=== PATIENT | female | born 1995 | race Caucasian/White ===

== ENCOUNTER 2022-10-09 10:03 | Emergency (ER) | payer BC, SELFPAY ==
[2022-10-09 10:09] VITALS: BP 139/85; PULSE 92; RESP 18; TEMP 37.1; O2SAT 99; BMI 27.0
--- NOTE | 2022-10-09 11:02 | ED_ITS ---
HPI - General Adult General Time Seen by Provider: 11:02 Date Seen: 10/09/22 Chief complaint: Vaginal Bleeding Stated complaint: 7 weeks : bleeding, pain Time Seen by Provider: 10/09/22 11:01 Source: patient and RN notes reviewed Mode of arrival: ambulatory Limitations: no limitations History of Present Illness HPI narrative: Patient is a very pleasant 27-year-old female with 1st trimester bleeding. She has not been in for ultrasound or clinic confirmation of but had her last menstrual period on 08/30/2022. Was only 3 days in usually would go 5-7. She calculates that she is just about 6 weeks. By a UpToDate calculator with an LMP of 08/30/2022, I have her at 5 weeks, 5 days with an estimated date of delivery on 06/06/2023. She started some spotting Sunday, yesterday it really worsened. She notes every time she goes to the bathroom she has a lot of clotting. She is having right-sided abdominal pain on top of cramping. She wants to make sure she does not have an ectopic . She is tearful stating thinking she is miscarrying. She did have first-trimester bleeding last year and was in our ER, I have reviewed those visits. She had a subchorionic hemorrhage. I can see her blood type was O positive from our blood bank history on 04/14/2021. She did end up going on to have a normal . This is only her 2nd currently. She is not symptomatic from the level bleeding at this time. No fevers. Related Data Home Medications Medication Instructions Recorded Confirmed No Known Home Medications 10/09/22 10/09/22 Allergies Allergy/AdvReac Type Severity Reaction Status Date / Time No Known Drug Allergies Allergy Verified 10/09/22 10:13 Review of Systems Status of ROS: Reports: 10 or more systems reviewed and unremarkable except as noted in History and below PFSH PFSH Social History Smoking Status: Never smoker Do you use any of these nicotine containing products: None Second hand tobacco smoke exposure: No How often do you have a drink containing alcohol: monthly or less AUDIT-C Alcohol total score: 1 Non-prescribed substance use: denies use Exam Const: Vital Signs, click to edit/add: Vital Signs - 24 hr 10/09/22 10:09 Temperature 98.7 F Pulse Rate [Pulse Oximeter] 92 Respiratory Rate 18 Blood Pressure [Ri ght Upper Arm] 139/85 Pulse Oximetry 99 Oxygen Delivery Me thod Room Air Documenting provider has reviewed patient's vital signs: yes Common normals: average body habitus, oriented x3, no limitations, healthy appearing, alert and well nourished General appearance: cooperative, comfortable, well kempt and in distress (Emotional distress with tearfulness) mild Orientation /consciousness: Yes awake, Yes oriented to person, Yes oriented to place and Yes oriented to time HENMT: Common normals: normocephalic, head/scalp atraumatic and hearing grossly normal bilaterally Head and scalp: normocephalic and atraumatic Eye: Common normals: PERRL, EOMs intact bilaterally, conjunctivae normal and no scleral icterus Conjunctiva: conjunctiva(e) normal Pupil: PERRL Neck & C-Spine: Common normals: no lymphadenopathy, supple, no JVD and thyroid normal Thyroid: thyroid normal Resp: Common normals: normal respiratory effort, no retractions, no use of accessory muscles and clear to auscultation bilaterally Auscultation: clear to auscultation bilaterally Cardio: Common normals: no JVD, regular rate, regular rhythm, S1 normal heart sound, S2 normal heart sound, no gallops, no clicks and no murmurs Rate: regular rate Rhythm: regular rhythm Heart sounds: S1 normal and S2 normal GI: Common normals: Normal to inspection, nondistended, normoactive bowel sounds present, soft to palpation (Very mild right lower quadrant tenderness without rebound or guarding), no hepatosplenomegaly and no masses Palpation: soft (Very mild right lower quadrant tenderness without rebound or guarding) and no hepatosplenomegaly : Other: She has a thin pad on, just scant dark brownish spotting. Neuro: Common normals: oriented x3 and gait normal Sensorium/orientation: awake, alert, oriented to person, oriented to place and oriented to time S peech: speech normal Psych: Appearance: well kempt Course Course Hospital Course: Will obtain an ultrasound, CBC and quantitative hCG. Certainly miscarriage is in the differential and I do concur with patient we need to rule out ectopic . She is hemodynamically stable and will be monitored while here. Reevaluation(s) Reevaluation #1: Reviewed with patient that there was not an intrauterine nor ectopic seen. Her hemoglobin looks good. Still awaiting her quantitative HCG, hopefully that will be back soon. Time: 12:25 Reevaluation #2: Reviewed with patient that her hCG level is around 902. She will need a recheck in 48-72 hours to ensure that it is going down. This likely represents a misca rriage given the negative ultrasound but should the hCG not be going down or increasing, further evaluation needs to be considered. Time: 12:50 Vital Signs Vital signs: Initial Vital Signs Temperature 98.7 F 10/09/22 10:09 Temperature Source Temporal Artery Scan 10/09/22 10:09 Pulse Rate 92 10/09/22 10:09 Respiratory Rate 18 10/09/22 10:09 Blood Pressure 139/85 10/09/22 10:09 Blood Pressure Mean 103 10/09/22 10:09 Blood Pressure Position Supine 10/09/22 10:09 Pulse Oximetry 99 10/09/22 10:09 Oxygen Delivery Method 10/09/22 10:09 Vital Signs Temperature 98.7 F 10/09/22 10:09 Pulse Rate 92 10/09/22 10:09 Respiratory Rate 18 10/09/22 10:09 Blood Pressure 139/85 10/09/22 10:09 Pulse Oximetry 99 10/09/22 10:09 Oxygen Delivery Method 10/09/22 10:09 Temperature 98.7 F 10/09/22 10:09 Pulse Rate 92 10/09/22 10:09 Respiratory Rate 18 10/09/22 10:09 Blood Pressure 139/85 10/09/22 10:09 Pulse Oximetry 99 10/09/22 10:09 Oxygen Delivery Method 10/09/22 10:09 Medical Decision Making Lab Data Lab results reviewed: Yes I reviewed the patient's lab results Labs: Lab Results 10/09/22 10/09/22 Range/Units 11:27 11:27 WBC 6.07 (4.50-11.00) K/uL RBC 4.47 (4.00-5.20) m/uL Hgb 13.9 (12.0-16.0) gm/dL Hct 40.9 (33.0-51.0) % MCV 92 (80-100) fL MCH 31 (26-34) pg MCHC 34 (32-36) gm/dL RDW Coeff of Cassy 13.2 (11.5-15.5) % Plt Count 286 (140-440) K/uL Neut % (Auto) 71.1 (42.0-72.0) % Lymph % (Auto) 22.7 (20-44) % Tillman % (Auto) 5.6 (0.0-11.0) % Eos % (Auto) 0.3 (0.0-7.0) % Baso % (Auto) 0.3 (0.0-3.0) % Neut # (Auto) 4.31 (1.7-7.0) K/uL Lymph # (Auto) 1.38 (0.90-2.90) K/uL Tillman # (Auto) 0.30 (0.00-0.90) K/UL Eos # (Auto) 0.02 (0.00-0.50) K/uL Baso # (Auto) 0.02 (0.00-0.30) K/uL Abs Immat Gran (auto) 0.00 (0.00-0.30) K/uL Imm/Tot Granulo (auto) 0.0 % HCG, Quant 902.83 mIU/mL Imaging Data Ultrasound pelvis: Attestation: I have reviewed the pertinent imaging results. Radiologist's impression: Patient: PUSHPA SCHREIBER Facility:?[facility] Patient ID:?[id number] Site Patient ID:?[id number]. Site :?[id number] Study:?US OB Pelvis -10/09/2022 12:14:02 PM Ordering Physician:Jessica Moore Final Report: INDICATION: Bleeding in 1st trimester COMPARISON: None. TECHNIQUE: Real-time jose-scale imaging of the pelvis was performed. FINDINGS: No intrauterine or ectopic . Endometrium is heterogeneous measuring 10 millimeters. No endometrial fluid. No uterine fibroid. Ovaries normal. No torsion. No adnexal mass or free fluid. IMPRESSION: No intrauterine or ectopic . Dictated by Rodrigo Rolle MD @ 10/09/2022 12:19:45 PM (Electronic Signature) Critical Care Time Critical Care Time Critical Care Time: No Discharge Plan Discharge Clinical Impression: Miscarriage Patient Disposition: Home, Self-Care Condition: Stable Instructions: Miscarriage (ED) Additional Instructions: Need to have your quantitative hCG rechecked in 48-72 hours. Please contact your clinic to have this scheduled. If the hCG is not dropping or is going up, you do need re-evaluation, may need repeat ultrasound. Otherwise, if this is indeed a miscarriage, can expect bleeding like a heavy menstrual cycle. If your bleeding is copious such as going through to heavy maxi pads over 2 hours, becoming lightheaded, dizzy or feeling like her going to pass out, have elevated heart rate or shortness of breath, do need to be re-evaluated. Please schedule a clinic follow-up with your primary care provider within the next 1-2 weeks. Activity Level: Activity as Tolerated Discharge Diet: Regular Prescriptions: No Action No Known Home Medications Stand Alone Forms: [employer] Info Instructions
--- NOTE | 2022-10-09 11:11 | CRLHL7_ITS ---
For Patients: As a result of the Century Cures Act, medical imaging exams and procedure reports are released immediately into your electronic medical record. You may view this report before your referring provider. If you have questions, please contact your health care provider. INDICATION: Bleeding in 1st trimester COMPARISON: None. TECHNIQUE: Real-time jose-scale imaging of the pelvis was performed. FINDINGS: No intrauterine or ectopic . Endometrium is heterogeneous measuring 10 millimeters. No endometrial fluid. No uterine fibroid. Ovaries normal. No torsion. No adnexal mass or free fluid. IMPRESSION: No intrauterine or ectopic . Dictated by Rodrigo Rolle MD @ 10/09/2022 12:19:45 PM (Electronically Signed)
--- OUTSIDE RECORDS SUMMARY | 2022-10-09 11:39 | XMS_ITS | Clinical Summary ---
:1995 Author Organization [facility] [place] [address] Care Team Providers Name Role Phone Keith Mary Alice Bertrand [facility] Primary Care Provider Allergies Active Allergy Reactions Severity Noted Date Comments Latex Rash 09/26/2021 Nickel Rash 09/18/2014 Medications No known medications Active Problems Problem Noted Date Annual physical exam 02/14/2022 Pap smear for cervical cancer screening 01/17/2022 Overview: 01/2022 NIL Plan: Pap/HPV due 01/2025 Susceptible to varicella (non-immune), currently pregn ant 05/25/2021 Family history of thyroid disorder 10/28/2015 ADD (attention deficit disorder) 09/18/2014 Adjustment disorder with mixed anxiety and depressed m ood 03/04/2013 Resolved Problems Problem Noted Date Resolved Date exam 02/14/2022 02/14/2022 Forceps delivery with baby delivered 12/18/2021 Liveborn infant 12/18/2021 02/16/2022 Obstetric vaginal laceration, delivered, current 12/18/2021 02/16/2022 hospitalization Category II heart rate tracing during labor and 202102/16/2022 delivery Gestational hypertension, third trimester 12/16/2021 02/16/2022 Decreased movement 10/27/2021 12/16/2021 Cramping affecting , antepartum 09/27/2021 12/16/2021 Supervision of normal 07/01/2021 02/17/20 22 Overview: Formatting of this note is dif ferent from the original. Candelario CHENG - at [place] 25 y.o. sex, name: GIRL FOB: Micah Other children: first for both COURSE: - Final Estimated Date of Delivery: 12/19 by LMP c/w 7 wk US - care initiated at 7 wks - pre-gravid BMI 28.74, goal TWG 7 kg (1 5 lb)-11.5 kg (25 lb) at term - early GDM screen: NO - aspirin 81 mg for pre-E risk: NO - maternal carrier screens: declined - genetic screens: First Tri low-r isk - immunizations: flu [], tdap [10/24/21], other [non-immune Rubella & Varicella] - accepting of blood products: YES - hx any HSV: NO DOC FSH PHQ9 TOTAL SCORE 01/30/2017201609/01/2019 05/23/2021 09/20/2021 PHQ-9 TOTAL SCORE 5 5 19 2 2 Depression Severity Level mild mild mode rately severe none none Imagin. 6/14 - 7w2d by CRL exactly matches LM P dating, FHR 133 bpm 2. 7/19 - 12w0d by CRL c/w LMP, NT wnl, First Tri screen low-risk 3. 9/ - 21w0d, anatomy WNL, EFW 42%, p lacenta posterior no previa Labs: - O Rh Positive - GC/CT: declined, low-risk - HB.6 > 11.2 - PLT: 267 - HCV: neg - GCT: 87 - GBS: negative Pap due, declined prenatally - plan for 6 wk PP visit COMPLICATIONS: High Risk? NO Non-immune status - rubella & varicella titers non-immune - vaccines have been recommended after Jocelin dorsey is accepting PREFERENCES: - planning epidural - wants to try hydrotherapy first and go as long as possible until epidural - taking class, no childbi rth edu - pump at hospital _ All baby meds ok Dysfunctional uterine bleeding 03/13/2016 2 Contraception 07/14/2014 09/20/2021 Encounter for other specified screening 02/16/2022 Arrest of descent, delivered, current hospitalization 02/16/2022 Immunizations Name Administration Dates Next Due DTaP 01/07/1997, 03/07/1996, 01/07/1996, 1995 Hepatitis A (Peds) 06/28/2010 Hepatitis B (Peds) 01/07/1997 Hib Conjugate, Unspecified 01/07/1997, 03/07/1996, 6, 1995 Human Papilloma Virus Vaccine 05/01/2011, 01/27/2011, 2010 Inactivated Polio Vaccine 03/07/1996, 01/07/1996, 1995 Influenza, IIV3 (Age >=3 years) 11/21/2014, 09/12/2011, 08/20 Influenza, IIV4 09/01/2019, 07/27/2016, 08/13/2015 Influenza,CCIIV4 PRESERV FREE 11/14/2018 MMR 06/11/2008, 01/07/1997 Meningococcal Vaccine (Menactra) 06/28/2010 Tdap 10/24/2021 Tuberculin (PPD) 01/15/2013 Varicella Vaccine 06/28/2010, 01/07/1997 Family History Medical History Relation Name Comments Hyperlipidemia Father Hypertension Father Psychiatric illness Maternal Aunt Thyroid Disease Maternal Aunt Alcohol/Drug Maternal Grandfather Diabetes Maternal Grandmother Other Maternal Grandmother muscular di sease similar to MS Psychiatric illness Maternal Grandmother Alcohol/Drug Maternal Uncle Alcohol/Drug Other Psychiatric illness Other Thyroid Disease Paternal Aunt defects No Family History Clotting disorder No Family History Congenital heart disease No Family History Relation Name Status Comments Father Maternal Aunt Maternal Grandfather Maternal Grandmother Maternal Uncle Other Paternal Aunt Social History Tobacco Use Types Packs/Day Years Used Date Never Smoker Smokeless Tobacco: Never Used Tobacco Cessation: Counseling Given: Yes Alcohol Use Standard Drinks/Week Comments Not Currently 0 (1 standard drink = 0.6 oz pure alcoho l) 3 drinks twice a month Alcohol Habits Answer Date Recorded How often do you have a drink containing 2-4 times a month 09/01/2019 alcohol? How many drinks containing alcohol do you have 3 or 4 09/01/2019 on a typical day when you are drinking? How often do you have six or more drinks on one Never 09/01/2019 occasion? Comment: 3 drinks twice a month 04/07/2015 Sex Assigned at Date Recorded Not on file Obstetrics History Para Term AB IAB SAB Ectopic Multiple Living Live Births 1 1 1 0 0 0 0 0 0 1 1 Date Outcome GA Total Labor/2nd/3rd Weight Sex Delivery Anes PTL Tere A 1 A5 Name Clin Labor 12/18 Term 39w 15h 12h 30m/2h 3.24 kg F Vag-Force Epidu N Sarita 5 8 Olivi 6d 05m 31m/0h 04m (7 lb ps ral, ng a on, 2.3 oz) IV Je nni Meds tracey, CNM Complications: Category II: Indeterminat e Delivery Location: Hospital ([facility] [place] [address] L&D TRIAGE) Last Filed Vital Signs Vital Sign Reading Time Taken Comments Blood Pressure 108/70 02/16/2022 2:08 PM CDT Pulse 68 02/16/2022 2:08 PM CDT Temperature 36.6 ??C (97.8 ??F) 12/19/2021 7:20 AM MACHINE FILLER Respiratory Rate 18 12/19/2021 7:20 AM MACHINE FILLER Oxygen Saturation 96% 12/19/2021 7:20 AM MACHINE FILLER Inhaled Oxygen Concentration - - Weight 84.4 kg (186 lb) 02/16/2022 2:08 PM CDT Height 167.6 cm (5' 6) 02/16/2022 2:08 PM CDT Body Mass Index 30.02 02/16/2022 2:08 PM CDT Plan of Treatment Health Maintenance Due Date Last Done Comments COVID-19 vaccine series (#1) 02/24/1996 Influenza for age 9-49 07/20/2022 09/01/2019, 11/14/2018, 07/27/2016, Additional history exists BMI (ht and wt on same day) for 02/16/2023 02/16/2022, 03/20, age 18+ 09/01/2019, Additional history exists Depression screening for age 12+ 02/16/2023 02/16/2022, 12/2020, 05/23/2021, Additional history exists Pap test for age 21-65 02/16/2025 02/16/2022, 10/18/2016 Tetanus booster 10/24/2031 10/24/2021 Hepatitis C screening for age Completed 05/23/2021 18-79 Tdap Completed 10/24/2021 Results Not on filefrom Last 3 Months Insurance Payer Benefit Plan / Subscriber ID Effective Dates Phone Addre ss Type Group [employer] [id number] 2017-Pres [address] [place] [address] [facility] [id number] 2021-Prese [address] [place] [address] (Home) [place] [id number] Jocelin Nagy [address] Self [id number] (Home) [place] [id number] Advance Directives Latest Code Status on File Code Status Date Activated Date Inactivated Comments Full Code 12/16/2021 5:34 PM 12/19/2021 3:34 PM Code Status Discussion: Reviewed Preferences Care Teams Chronic Care Nurse Relationship Specialty Start Date End Date Mary Alice Parker CNM PCP - General Family Practice 12/02/10 [id number] [place] [address]
[2022-10-09 11:42] LABS: Basophils Absolute Auto 0.02 K/uL (0.00-0.30); Basophils Percent Auto 0.3 % (0.0-3.0); Eosinophils Absolute Auto 0.02 K/uL (0.00-0.50); Eosinophils Percent Auto 0.3 % (0.0-7.0); Hematocrit 40.9 % (33.0-51.0); Hemoglobin* 13.9 gm/dL (12.0-16.0); Lymphocytes Absolute Auto 1.38 K/uL (0.90-2.90); Lymphocytes Percent Auto 22.7 % (20-44); Mean Corpuscular HGB Conc 34 gm/dL (32-36); Mean Corpuscular Hemoglobin 31 pg (26-34); Mean Corpuscular Volume 92 fL (80-100); Monocytes Percent Auto 5.6 % (0.0-11.0); Neutrophils Absolute Auto 4.31 K/uL (1.7-7.0); Neutrophils Percent Auto 71.1 % (42.0-72.0); Platelet Count* 286 K/uL (140-440); RDW Coefficient of Variation % 13.2 % (11.5-15.5); Red Blood Count 4.47 m/uL (4.00-5.20); White Blood Count* 6.07 K/uL (4.50-11.00)
[2022-10-09 11:57] LABS: Slide Review Reflex No
[2022-10-09 13:00] VITALS: BP 122/92; PULSE 70; RESP 18; O2SAT 100
== END 2022-10-09 13:05 | disposition home or self-care (01) ==
PROVIDERS: Emergency Provider Family Medicine
DX: O03.9 Complete or unspecified spontaneous abortion without complication (principal); Z3A.01 Less than 8 weeks gestation of pregnancy
CPT/HCPCS: 36415; 76817; 84702; 85025; 93976; 99284

== ENCOUNTER 2023-02-01 12:48 | Outpatient (CLI) | payer BC, SELFPAY ==
--- NOTE | 2023-02-01 13:00 | CRLHL7_ITS ---
For Patients: As a result of the Cures Act, medical imaging exams and procedure reports are released immediately into your electronic medical record. You may view this report before your referring provider. If you have questions, please contact your health care provider. INDICATION: First trimester scan, establish dates. COMPARISON: None. TECHNIQUE: Real-time jose-scale imaging of the pelvis was performed. FINDINGS: Sonographic imaging demonstrates a single living intrauterine gestation. The embryo demonstrates a regular cardiac rate measuring 173 beats per minute. The embryo`s crown-rump length measurement of 2.1 cm corresponds to a gestational age of 8 weeks 5 days with a sonographic due date of 09/08/2023. There is a normal-appearing yolk sac. There are no gross abnormalities noted within the embryo at this early state of development. The gestational sac has a normal appearance. There is no evidence of a perigestational hemorrhage. The amount of fluid within the sac appears appropriate for gestational age. The cervix is closed. The myometrium appears normal. Corpus luteal cyst right ovary. Left ovary not visualized today. There are no suspicious fluid collections noted in the cul-de-sac. IMPRESSION: Normal first trimester OB ultrasound exam. Gestational age calculated at 8 weeks 5 days with a sonographic due date of 09/08/2023. Dictated by Rodrigo Rolle MD @ 02/02/2023 11:02:32 AM (Electronically Signed)
== END 2023-02-01 12:49 | disposition home or self-care (01) ==
LOC: US 12:49
PROVIDERS: Visit Provider Physician Assistant
DX: Z34.91 Encounter for supervision of normal pregnancy, unspecified, first trimester (principal); Z3A.08 8 weeks gestation of pregnancy
CPT/HCPCS: 76817; 82565; 82570; 84156; 84443; 84450; 84460; 84520; 84550; 86592; 86703; 86762; 86787; 86803; 86850; 86900; 86901; 87086; 87340

== ENCOUNTER 2023-02-01 13:43 | Outpatient (CLI) | payer BC, SELFPAY | END 2023-02-01 13:44 | disposition home or self-care (01) | PROVIDERS: Visit Provider Advanced Practice Midwife | DX: Z34.91 Encounter for supervision of normal pregnancy, unspecified, first trimester (principal); Z3A.08 8 weeks gestation of pregnancy | CPT/HCPCS: 82565; 82570; 84156; 84443; 84450; 84460; 84520; 84550; 86592; 86703; 86762; 86787; 86803; 86850; 86900; 86901; 87086; 87340 ==

== ENCOUNTER 2023-03-01 09:52 | Outpatient (CLI) | payer BC, SELFPAY | END 2023-03-01 09:53 | disposition home or self-care (01) | LOC: NFLDREF 09:52 | PROVIDERS: Visit Provider Advanced Practice Midwife | DX: Z34.91 Encounter for supervision of normal pregnancy, unspecified, first trimester (principal); Z3A.12 12 weeks gestation of pregnancy | CPT/HCPCS: 84460 ==

== ENCOUNTER 2023-06-15 08:03 | Outpatient (CLI) | payer BC, SELFPAY | END 2023-06-15 08:04 | disposition home or self-care (01) | LOC: NFLDREF 06-17 15:39 | PROVIDERS: Visit Provider Advanced Practice Midwife | DX: Z34.93 Encounter for supervision of normal pregnancy, unspecified, third trimester (principal); Z3A.28 28 weeks gestation of pregnancy | CPT/HCPCS: 86592 ==

== ENCOUNTER 2023-06-21 08:20 | Outpatient (CLI) | payer BC, SELFPAY | END 2023-06-21 08:21 | disposition home or self-care (01) | LOC: NFLDREF 09:25 | PROVIDERS: Visit Provider Advanced Practice Midwife | DX: Z34.93 Encounter for supervision of normal pregnancy, unspecified, third trimester (principal) | CPT/HCPCS: 82951; 82952 ==

== ENCOUNTER 2023-08-06 17:08 | Outpatient (CLI) | payer BC, SELFPAY ==
[2023-08-06 17:21] VITALS: BP 129/84; PULSE 93; RESP 16; TEMP 37.1
[2023-08-06 17:22] VITALS: PULSE 97; O2SAT 99
--- NOTE | 2023-08-06 17:52 | PC.OBNST ---
NST Note NST Note Start: 08/06/23 17:16 Freq: ONCE Status: Active Protocol: Document 08/06/23 17:50 [facility] (Rec: 08/06/23 17:51 [facility] [id number]) NST Note 3 Para (# of births) 1 EDC 09/07/23 Gestational Age In Weeks & Days 35 Weeks & 3 Days Patient Presented with Complaint(s) of Decreased movement Reactive Yes Appropriate for Gestational Age Yes MARCIAL Burnett RN Date 08/06/23 Reactive Yes Appropriate for Gestational Age Yes MARCIAL Rowley RN Date 08/06/23 OB NST charge Yes Complete NST Note via Write Note Yes The provider's electronic signature indicates the NST is reactive/appropriate for gestational age. *Note to provider: If an addendum is required, open the patient's chart and click on the note under the Nurse/Allied Health tab.
== END 2023-08-06 17:56 | disposition home or self-care (01) ==
LOC: OB OUT 17:08 → OB 17:10
PROVIDERS: Visit Provider Advanced Practice Midwife
DX: O36.8130 Decreased fetal movements, third trimester, not applicable or unspecified (principal); Z3A.35 35 weeks gestation of pregnancy
CPT/HCPCS: 59025; 99213

== ENCOUNTER 2023-08-15 13:40 | Outpatient (CLI) | payer BC, SELFPAY ==
--- NOTE | 2023-08-15 14:00 | CRLHL7_ITS ---
For Patients: As a result of the Century Cures Act, medical imaging exams and procedure reports are released immediately into your electronic medical record. You may view this report before your referring provider. If you have questions, please contact your health care provider. INDICATION: Third trimester scan, evaluate growth. Follow-up pelviectasis COMPARISON: 04/24/2023 TECHNIQUE: Real time jose scale imaging of the fetus was performed. FINDINGS: Sonographic imaging demonstrates a single living intrauterine gestation. Fetus demonstrates a regular cardiac rate of 161 beats per minute. Fetus has a vertex position. The placenta lies anterior. Amniotic fluid volume appears normal and there is a single deepest vertical pocket: 8.8 cm. PANTERA 20.9 cm. The estimated weight is 3416gm which lies at the 88th %. On the prior OB ultrasound exam dated 04/24/2023 the estimated weight was at the 72nd%. BPD 91st percentile. HC 62nd percentile. AC 94th percentile. FL 74th percentile. The HC/AC ratio measures 0.97 range (0.89-1.06). Right renal pelvis measures 3.7 millimeters. Left renal pelvis measures 7.1 millimeters. Previously, the right renal pelvis measured 5 millimeters in the left renal pelvis measured 4 millimeters. IMPRESSION: Left renal pelviectasis measures 7.1 millimeters, slightly abnormal. follow-up recommended. Sonographic gestational age 38 weeks 1 day and sonographic due date 08/28/2023. Sonographic age 10 days ahead of the clinical age. Estimated weight 88th percentile. Abdominal circumference 94th percentile. Dictated by Rodrigo Rolle MD @ 08/16/2023 10:12:00 AM (Electronically Signed)
== END 2023-08-15 13:41 | disposition home or self-care (01) ==
LOC: US 13:40
PROVIDERS: Visit Provider Advanced Practice Midwife
DX: Z34.83 Encounter for supervision of other normal pregnancy, third trimester (principal); Z3A.38 38 weeks gestation of pregnancy
CPT/HCPCS: 76816; 84450; 84460

== ENCOUNTER 2023-08-15 15:04 | Outpatient (CLI) | payer BC, SELFPAY ==
[2023-08-16 15:23] LABS: Strep B DNA Probe NEGATIVE (Negative)
[2023-08-16 15:43] LABS: Strep B Pen/Amox Allergy No
== END 2023-08-15 15:05 | disposition home or self-care (01) ==
PROVIDERS: Visit Provider Advanced Practice Midwife
DX: Z34.93 Encounter for supervision of normal pregnancy, unspecified, third trimester (principal); Z3A.38 38 weeks gestation of pregnancy
CPT/HCPCS: 82239; 84450; 84460; 87081; 87653

== ENCOUNTER 2023-08-28 10:42 | Outpatient (CLI) | payer BC, SELFPAY ==
[2023-08-28] VITALS (9 sets, daily range): BP systolic 109–132; BP diastolic 66–78; PULSE 77–92; RESP 18; TEMP 36.6
[2023-08-28] MEDS: ACETAMINOPHEN 500 MG TABLET 1000 MG PO (11:47)
[2023-08-28] MEDS: METOCLOPRAMIDE 10 MG TABLET PO (11:48)
[2023-08-28 12:09] LABS: Creatinine Urine 154.3 mg/dL; Total Protein Urine < 5 mg/dL
[2023-08-28 12:24] LABS: Hematocrit 33.3 % (33.0-51.0); Hemoglobin* 11.1 gm/dL (12.0-16.0); Mean Corpuscular HGB Conc 33 gm/dL (32-36); Mean Corpuscular Hemoglobin 32 pg (26-34); Mean Corpuscular Volume 95 fL (80-100); Platelet Count* 224 K/uL (140-440); White Blood Count* 6.47 K/uL (4.50-11.00)
[2023-08-28 12:25] LABS: Slide Review Reflex No
[2023-08-28 12:48] LABS: Alanine Aminotransferase* 10 U/L (4-35); Aspartate Amino Transferase* 16 U/L (12-35); Blood Urea Nitrogen* 6 mg/dL (5-24); Creatinine* 0.7 mg/dL (0.5-1.5); Estimated Glomerular Filt Rate 121 ml/min
[2023-08-28] MEDS: SUMAtriptan succinate 50 MG TABLET PO (13:19)
--- NOTE | 2023-08-28 13:59 | PC.OBNST ---
NST Note NST Note Start: 08/28/23 11:19 Freq: ONCE Status: Active Protocol: Document 08/28/23 13:55 [facility] (Rec: 08/28/23 13:59 [facility] [id number]) NST Note 3 Para (# of births) 1 EDC 09/07/23 Gestational Age In Weeks & Days 38 Weeks & 4 Days Patient Presented with Complaint(s) of Other Other Complaints Patient was sent from clinic for high blood pressure and persistent headache. Reactive Yes MARCIAL Rubio RN Date 08/28/23 Reactive Yes MARCIAL Michaels RN Date 08/28/23 OB NST charge Yes Complete NST Note via Write Note Yes The provider's electronic signature indicates the NST is reactive/appropriate for gestational age. *Note to provider: If an addendum is required, open the patient's chart and click on the note under the Nurse/Allied Health tab.
== END 2023-08-28 13:45 | disposition home or self-care (01) ==
LOC: OB OUT 10:44 → OB 10:45
PROVIDERS: Visit Provider Advanced Practice Midwife
DX: O16.3 Unspecified maternal hypertension, third trimester (principal); R51.9 Headache, unspecified; Z3A.38 38 weeks gestation of pregnancy
CPT/HCPCS: 36415; 59025; 82565; 82570; 84156; 84450; 84460; 84520; 85027; 99213; A9270

== ENCOUNTER 2023-08-29 12:24 | Outpatient (CLI) | payer BC, SELFPAY ==
[2023-08-29] VITALS (7 sets, daily range): BP systolic 118–124; BP diastolic 69–82; PULSE 81–108; RESP 16; TEMP 36.6; O2SAT 97
[2023-08-29] MEDS: METOCLOPRAMIDE 10 MG TABLET PO (13:47)
--- NOTE | 2023-08-29 14:07 | PM.OBLDTN ---
OB - Triage/Final Diagnosis Visit Information Date of evaluation: 08/29/23 Narrative: The patient is a 28 year old 3 para 1 at 38.5 weeks gestation by LMP, who presents with persistent headache and lightheadedness. She was seen in clinic yesterday and sent to L&D for monitoring for some elevated BP's. Had normal BP's yesterday and normal Pre E labs. Consulted with Dr. Parish, recommended repeat Pre E labs, fluids and suggested Compazine for headache rather than Imitrex. Labs all normal on recheck, given, IV fluids and Compazine for headache with decrease of pain from 05/28 to 02/26. Pt would like to go home. Rx sent for Compazine for continued headache treatment. Keep routine OB visits. Reason for evaluation: other (Persistent headache) Evaluation Vital signs: Vital Signs - 24 hr 08/29/23 12:38 08/29/23 12:39 08/29/23 12:47 Temperature 97.9 F Pulse Rate Respiratory Rate 16 Blood Pressure 122/79 Pulse Oximetry 97 08/29/23 12:47 08/29/23 13:06 08/29/23 13:06 Temperature Pulse Rate 105 H 90 Respiratory Rate Blood Pressure 124/76 Pulse Oximetry 08/29/23 13:21 08/29/23 13:21 08/29/23 13:35 Temperature Pulse Rate 96 Respiratory Rate Blood Pressure 121/79 124/82 Pulse Oximetry 08/29/23 13:35 Temperature Pulse Rate 93 Respiratory Rate Blood Pressure Pulse Oximetry Fetus (Single) Heart Rate Baseline: 145 [facility] Variability: Moderate (6-25) Monitor Accelerations: Present Monitor Decelerations: None Final Diagnosis (1) Migraine headache with aura: Status: Chronic
[2023-08-29 14:25] LABS: Hematocrit 34.8 % (33.0-51.0); Hemoglobin* 11.8 gm/dL (12.0-16.0); Mean Corpuscular HGB Conc 34 gm/dL (32-36); Mean Corpuscular Hemoglobin 32 pg (26-34); Mean Corpuscular Volume 94 fL (80-100); Platelet Count* 229 K/uL (140-440); Red Blood Count 3.72 m/uL (4.00-5.20); White Blood Count* 6.35 K/uL (4.50-11.00)
[2023-08-29] MEDS: LACTATED RINGERS 1000 ML 1,000 ML 500 ML IV (14:30)
[2023-08-29 14:37] LABS: Slide Review Reflex No
[2023-08-29 14:42] LABS: Alanine Aminotransferase* 11 U/L (4-35); Aspartate Amino Transferase* 18 U/L (12-35); Creatinine* 0.7 mg/dL (0.5-1.5); Estimated Glomerular Filt Rate 121 ml/min
[2023-08-29 14:43] LABS: Blood Urea Nitrogen* 5 mg/dL (5-24)
[2023-08-29] MEDS: PROCHLORPERAZINE 10 MG TABLET PO (15:29)
[2023-08-29 15:38] LABS: Total Protein Urine Random* < 2 mg/dL
--- NOTE | 2023-10-04 09:50 | PC.OBNST ---
NST Note NST Note Start: 08/29/23 12:46 Freq: ONCE Status: Discharge Protocol: Document 08/29/23 17:34 WK (Rec: 08/29/23 17:39 WK [email or web address]) NST Note 3 Para (# of births) 1 EDC 09/07/23 Gestational Age In Weeks & Days 38 Weeks & 5 Days Patient Presented with Complaint(s) of Headache If Pain, describe location HX of migraines Reactive Yes Appropriate for Gestational Age Yes RN Jean Paul RNC Date 08/29/23 Reactive Yes RN Emperatriz RN OB NST charge Yes Complete NST Note via Write Note Yes The provider's electronic signature indicates the NST is reactive/appropriate for gestational age. *Note to provider: If an addendum is required, open the patient's chart and click on the note under the Nurse/Allied Health tab.
== END 2023-08-29 17:20 | disposition home or self-care (01) ==
LOC: OB OUT 12:24 → OB 12:25
PROVIDERS: Visit Provider Advanced Practice Midwife
DX: O26.899 Other specified pregnancy related conditions, unspecified trimester (principal); G43.109 Migraine with aura, not intractable, without status migrainosus; R51.9 Headache, unspecified
CPT/HCPCS: 36415; 59025; 82565; 84156; 84450; 84460; 84520; 85027; 99213; A9270; J7120

== ENCOUNTER 2023-09-06 10:59 | Outpatient (CLI) | payer BC, SELFPAY ==
[2023-09-06] VITALS (13 sets, daily range): BP systolic 112–127; BP diastolic 70–85; PULSE 93–116; RESP 18; TEMP 36.6; O2SAT 97–98
[2023-09-06 11:55] LABS: Hematocrit 31.8 % (33.0-51.0); Hemoglobin* 10.7 gm/dL (12.0-16.0); Mean Corpuscular HGB Conc 34 gm/dL (32-36); Mean Corpuscular Hemoglobin 32 pg (26-34); Mean Corpuscular Volume 95 fL (80-100); Platelet Count* 223 K/uL (140-440); Red Blood Count 3.36 m/uL (4.00-5.20); White Blood Count* 6.69 K/uL (4.50-11.00)
[2023-09-06 11:56] LABS: Slide Review Reflex No
[2023-09-06 12:12] LABS: Total Protein Urine < 5 mg/dL
[2023-09-06 12:12] LABS: Alanine Aminotransferase* 11 U/L (4-35); Aspartate Amino Transferase* 32 U/L (12-35); Blood Urea Nitrogen* 4 mg/dL (5-24); Creatinine* 0.7 mg/dL (0.5-1.5); Estimated Glomerular Filt Rate 121 ml/min
[2023-09-06 12:38] LABS: Creatinine Urine 372.3 mg/dL
--- NOTE | 2023-09-06 13:22 | PC.OBNST ---
NST Note NST Note Start: 09/06/23 12:00 Freq: ONCE Status: Active Protocol: Document 09/06/23 13:19 [facility] (Rec: 09/06/23 13:22 [facility] [id number]) NST Note 3 Para (# of births) 1 EDC 09/07/23 Gestational Age In Weeks & Days 39 Weeks & 6 Days Patient Presented with Complaint(s) of Pain,Headache If Pain, describe location RUQ pain- sharp stabbing comes and goes Other Complaints higher BP's at home Reactive Yes RN Sue RNC Date 09/06/23 Reactive Yes MARCIAL Dover RN Date 09/06/23 OB NST charge Yes Complete NST Note via Write Note Yes The provider's electronic signature indicates the NST is reactive/appropriate for gestational age. *Note to provider: If an addendum is required, open the patient's chart and click on the note under the Nurse/Allied Health tab.
== END 2023-09-06 13:00 | disposition home or self-care (01) ==
LOC: OB OUT 10:59 → OB 11:00
PROVIDERS: Visit Provider Advanced Practice Midwife
DX: O47.1 False labor at or after 37 completed weeks of gestation (principal); Z3A.39 39 weeks gestation of pregnancy
CPT/HCPCS: 36415; 59025; 82565; 82570; 84156; 84450; 84460; 84520; 85027; 99213

== ENCOUNTER 2023-09-09 00:41 | Inpatient (IN) | payer BC, SELFPAY ==
[2023-09-09] VITALS (39 sets, daily range): BP systolic 98–146; BP diastolic 53–91; PULSE 71–130; RESP 16–20; TEMP 36.4–36.8; O2SAT 81–100; BMI 33.3
[2023-09-09] MEDS: LACTATED RINGERS 1000 ML 1,000 ML 999 ML IV (01:00)
[2023-09-09] MEDS: fentaNYL 100 MCG/2 ML inj IVP (01:08)
--- NOTE | 2023-09-09 01:18 | P.LDBA_ITS ---
Subjective History of Present Illness Date Seen: 09/09/23 Narrative: Patient is being admitted to Labor and Delivery for active labor. She is a 28 year old at 39.6 weeks gestation. She states her contractions began about 2 hours ago, on admission cervix is 5.5, 90%, -1 with bulging bag. She denies any leaking of fluid or vaginal bleeding. She plans an epidural for pain. Currently breathing well through contractions and waiting for anesthesia to place. She denies PreE symptoms on admission, continues to have daily headaches. BP on admission 146/90, reports slight stars and blurry vision with onset of contractions, she did just have a dose of Fentanyl just prior to this exam. Her full history and physical was dictated by Chela Tolliver CNM on 09/04/23 Please see this for details. Specific Issues/Plans Wants MaterniT 21- Pt doesn't want to know sex. H&P done by Chela Tollvier on 09/04/23 1. Hx of Forceps assisted delivery 2. Hx of Gestational HTN Noted at end of , IOL for Will start taking ASA 3. ADD not on medication hasn't been for 4+ years 4. Hx of Anxiety and Depression no medications, did therapy in past not currently 5. Migraine with aura has had persistent headache since 08/27 using Tylenol and Compazine for FROST PreE labs normal, BPs normal with monitoring 6. Varicella non immune -needs vaccine PP 7. ALT mildly elevated on baseline labs, consider repeat at next visit. RESOLVED Lab repeated 03/01: 19, WNL 8. Mild bilateral pelviectasis measuring 4.2 millimeters on the left and 4.6 millimeters on the right. Recommend US follow-up in 3rd trimester. 08/15 US showed R-0.4cm L-0.7 cm, EFW 88%, PANTERA 20.9cm 9. Elevated 1 hr GCT (145). Passed 3 hr GTT, all values WNL COVID: declines Flu: declined TDAP: 08/01/2023 32wk Mental Health: 07/18/2023 34wk Hgb: 08/29/2023 OB - Problem Based A/P Additional Plan (1) Active labor at term: Status: Acute (2) Pain during labor: Status: Acute Plan Assessment:?? at 39.6 weeks gestation?? GBS negative? Patient is coping well with challenges of labor.?? Labor type: Spontaneous, Active labor? Category 1 FHR pattern.? complicated by: ADD, anxiety and depression, migraines with aura, mild bilateral pelviesctasis, elevated 1 hr GTT with normal 3 hr GT Recently has had daily headache needing additional medications to treat, negative work ups for PreE On admission BP 146/90 will have Pre E labs drawn again. Labor complicated by: nothing at this time? Plan:?? * ?Admit to L & D? * IV access: per protocol for epidural placement * Monitoring per policy: continuous ? * Candidate for analgesia of choice.? Planning epidural for pain management * Expectant management at this time * Patient encouraged to reposition and ambulate to promote physiologic labor and . * Anticipate ? Delivery/Labor/Induction Plan Plan: expectant management OB Exam Physical Exam Vital signs: Pulse BP Pulse Ox 117 H 146/90 H 99 09/09/23 00:44 09/09/23 00:44 09/09/23 00:45 Narrative: Vitals Reviewed Constitutional:? Alert and oriented x3 HEENT:? Normocephalic, atraumatic Neck:? Supple Lungs:? Clear to auscultation bilaterally Heart:? Regular rate and rhythm, no murmur, rub or gallop Abdomen:? Soft, nontender, and gravid. Vertex by Ras's, confirmed with cervical exam. Extremities:? No edema or erythema Cervix: 5.5 cm/90%/-1 station/vertex NST: 130 bpm/moderate variability/+accelerations/-decelerations/Q2-3 mins contractions Detailed Labor and Delivery Exam Patient Gravid: Yes Fetus (Single) Amniotic Membrane Status: intact
[2023-09-09 01:28] LABS: Hematocrit 35.2 % (33.0-51.0); Hemoglobin* 11.9 gm/dL (12.0-16.0); Mean Corpuscular HGB Conc 34 gm/dL (32-36); Mean Corpuscular Hemoglobin 31 pg (26-34); Mean Corpuscular Volume 93 fL (80-100); Platelet Count* 283 K/uL (140-440); Red Blood Count 3.79 m/uL (4.00-5.20); White Blood Count* 8.32 K/uL (4.50-11.00)
[2023-09-09 01:29] LABS: Slide Review Reflex No
[2023-09-09] MEDS: ROPIVACAINE 0.2% 100 ml 100 ML 12 MG EPIDURAL (01:38)
[2023-09-09 01:44] LABS: Alanine Aminotransferase* 12 U/L (4-35); Aspartate Amino Transferase* 40 U/L (12-35); Blood Urea Nitrogen* 5 mg/dL (5-24); Creatinine* 0.7 mg/dL (0.5-1.5); Estimated Glomerular Filt Rate 121 ml/min
--- NOTE | 2023-09-09 01:51 | P.ANBPRC_ITS ---
[facility] Medical History (Updated 09/09/23 @ 01:31 by Luciana Tolliver CNM) Migraine headache with aura ?G43.109 - Migraine with aura, not intractable, without status migrainosus (ICD-10) History of miscarriage (09/2022) ?Z87.59 - Personal history of other complications of , childbirth and the puerperium (ICD-10) Depression ?F32.A - Depression, unspecified (ICD-10) Attention deficit disorder ?F98.8 - Other specified behavioral and emotional disorders with onset usually occurring in childhood and adolescence (ICD-10) Anxiety ?F41.9 - Anxiety disorder, unspecified (ICD-10) Surgical History (Updated 02/01/23 @ 14:05 by Luciana Tolliver CNM) H/O oral surgery ?Z98.890 - Other specified postprocedural states (ICD-10) Family History (Updated 02/01/23 @ 14:06 by Luciana Tolliver CNM) Maternal Grandmother Diabetes Psychiatric illness Multiple sclerosis Maternal Grandfather Alcohol dependence Aunt Psychiatric illness Thyroid disease Uncle Alcohol dependence Father High blood pressure High cholesterol Brother Alcohol dependence Social History (Updated 02/01/23 @ 14:48 by Beth Cornell CNM) Narrative: SOCIAL?? Education: some college?? Work: learning program manager at [employer]?? Partner: Micah, child protective services social worker of [employer]?? Lives with: Micah and daughter (14 months)?? Pets: 1 dog and 1 cat Abuse: Denies past/present?? Special Diet: Denies?? Ok with a blood transfusion: yes?? Culture or scientology beliefs: denies?? RISK FACTORS?? Exercise Times/wk: not at this time?? Depression/Anxiety: denies?? Seat Belt Use: Routinely Smoking: Denies past/present?? Alcohol/day: Denies while ?? Caffeine: one pop at day?? Drug Use: Denies past/present?? Chicken Pox: vaccinated?? MRSA: Denies?? Plan for feeding baby: Formula Smoking Status: Never smoker Do you use any of these nicotine containing products: None Second hand tobacco smoke exposure: No How often do you have a drink containing alcohol: monthly or less AUDIT-C Alcohol total score: 1 Non-prescribed substance use: denies use Little interest or pleasure in doing things: several days Feeling down, depressed, or hopeless: several days Meds Home Medications and Allergies Home Medications Medication Instructions Recorded Confirmed Type prenat.vits,moriah,[id number] 1 tab PO QDAY 02/01/23 09/07/23 History ferrous fumarate 325 mg (106 mg 325 mg PO Q OTHER DAY 08/15/23 09/07/23 History iron) tablet (Ferretts) calcium carbonate 500 mg calcium 500 mg PO TID 08/28/23 09/07/23 History (1,250 mg) chewable tablet (Calcium 500) Allergies Allergy/AdvReac Type Severity Reaction Status Date / Time nickel Allergy Mild Rash Verified 09/07/23 09:21 latex Allergy Unknown Unknown Verified 09/07/23 09:21 Results Labs Labs: Laboratory Results - last 24 hr 09/09/23 09/09/23 09/09/23 01:00 01:00 01:00 WBC Cancelled 8.32 Corrected WBC Cancelled RBC Cancelled 3.79 L Hgb Cancelled Hct MCV MCH MCHC RDW Coeff of Cassy Plt Count Neut % (Auto) Lymph % (Auto) [place] % (Auto) Eos % (Auto) Baso % (Auto) Neut # (Auto) Lymph # (Auto) [place] # (Auto) Eos # (Auto) Baso # (Auto) Abs Immat Gran (auto) Imm/Tot Granulo (auto) BUN Creatinine Estimated GFR AST ALT 09/09/23 09/09/23 09/09/23 01:00 01:00 01:00 WBC Corrected WBC RBC Hgb 11.9 L Hct Cancelled 35.2 MCV Cancelled 93 MCH Cancelled MCHC RDW Coeff of Cassy Plt Count Neut % (Auto) Lymph % (Auto) [place] % (Auto) Eos % (Auto) Baso % (Auto) Neut # (Auto) Lymph # (Auto) [place] # (Auto) Eos # (Auto) Baso # (Auto) Abs Immat Gran (auto) Imm/Tot Granulo (auto) BUN Creatinine Estimated GFR AST ALT 09/09/23 09/09/23 09/09/23 01:00 01:00 01:00 WBC Corrected WBC RBC Hgb Hct MCV MCH 31 MCHC Cancelled 34 RDW Coeff of Cassy Cancelled Plt Count Cancelled 283 Neut % (Auto) Cancelled Lymph % (Auto) Cancelled [place] % (Auto) Cancelled Eos % (Auto) Cancelled Baso % (Auto) Cancelled Neut # (Auto) Cancelled Lymph # (Auto) Cancelled [place] # (Auto) Cancelled Eos # (Auto) Cancelled Baso # (Auto) Cancelled Abs Immat Gran (auto) Cancelled Imm/Tot Granulo (auto) Cancelled BUN 5 Creatinine 0.7 Estimated GFR 121 AST 40 H ALT 12 Vital Signs Vital Signs: Last Vital Signs Pulse 102 H 09/09/23 01:47 BP 132/85 09/09/23 01:47 Pulse Ox 98 09/09/23 01:41 Anesthesia Procedures Epidural Insertion Patient Location: OB Start Time: :00 Stop Time: 02:00 Start Date: 09/09/23 Stop Date: 09/09/23 Reason for Block: procedure for pain Patient Position: sitting Performed By: Kendall Paniagua Preanesthetic Checklist: IV checked, risks and benefits discussed, surgical consent, monitors and equipment checked, pre-op evaluation, timeout performed and anesthesia consent Prep: chlorhexidine gluconate Monitoring: blood pressure monitoring, continuous pulse oximetry and heart rate Approach: midline Vertebral Space: lumbar (1-5) Epidural Technique: IAN saline Needle Type: Tuohy needle Injection Technique: continuous catheter Needle gauge: 17 Needle Length (cm): 10 cm Needle Insertion Depth (cm): 6 Catheter Gauge: 19 Catheter Type: multi-orifice Catheter at skin depth (cm): 12 Test Dose Result: negative and lidocaine 1.5% with epinephrine 1 to 200,000
[2023-09-09] MEDS: PHENYLEPHRINE 100 MCG/ML SYRINGE IVP ×2 (02:50→03:50)
[2023-09-09] MEDS: OXYTOCIN 30 unit/500 ML in NS 30 UNIT/500 ML BAG 325 UNIT IVPB (04:33)
[2023-09-09] MEDS: LIDOCAINE 1 % PF 30 ML INJECTION (04:56)
--- NOTE | 2023-09-09 05:13 | W.PM.OBVAGDE ---
OB Procedure Vag Delivery Mother Details Mother Details: The patient is a 28 year-old, 3, Para 1, admitted on 09/09/23 at 40.2 Days gestation.?She arrived in active labor, membranes intact. : 3 Para: 2 Weeks Gestation: 40.2 Admission Date: 09/09/23 Additional Details Amniotic Membrane Status: AROM Amniotic Membrane Rupture Date: 09/09/23 Amniotic Membrane Rupture Time: 02:53 Amniotic Membrane Fluid Description: Clear Analgesia/Anesthesia Type: Epidural Waterbirth: No Pitcoin: Yes (for AMTSL) Labor Onset: 22:30 Complete: 03:29 Pushin:30 Heart: heart tones during second stage were Category II, FHR 120's with nonrepetitive variables and occasional early decels noted with quick return to baseline. Moderate variability and + accelerations throughout. Delivery Details Delivery Date: 09/09/23 Delivery Time: 04:32 Route of delivery: Gender: Male Infant Viability: Alive; Heart Rate Present Position at Delivery: OA Delivery Details: Delivered over intact perineum via spontaneous vaginal delivery. She arrived in active labor 5cm, 90% and -1, requested an epidural then progressed normally. She had some relief with the epidural but continued to feel strong pressure with contractions. AROM for clear fluid at 8 cm, she then progressed to complete and began pushing. She pushed in various positions including, side lying and hands and knees. Had good movement of fetus with closed knees pushing and then progressed to delivery a short time later. ? She became complete at 0329.? Spontaneous vaginal delivery at 0432 of?a viable?male infant.??Delivered in vertex OA position.??Shoulders delivered easily.? Spontaneous cry noted.?? placed on maternal abdomen.??Cord?was clamped and cut after a 5+ minute delay.??Nose and mouth were bulb suctioned.? Shoulder dystocia: no? Nuchal cord: yes times one, reduced? Meconium stained?fluid: no? Water : no? ? ? 8 at 1 minute and 9 at 5 minutes.? ? Placenta delivered spontaneously and?complete?at 0441 with a?3 vessel?cord.?? Bleeding controlled with fundal massage and?pitocin?for AMTSL.? ? Mother and infant were stable after delivery 1 Minute Interval Total Score: 8 5 Minute Interval Total Score: 9 Additional Details Shoulder Dystocia: No Placenta Delivery Time: 04:41 Placental Delivery Description: Spontaneous Delivery repair: Vicryl Procedure Done: Global Blood Loss: 75 Laceration: Perineal - 2nd Degree (perineum intact, small shallow 2nd degree just in the interior forchette repaired) Blood Loss Measurement Type: QBL Bakri Used: No Sponge/Need Count Correct: Yes Cord Vessel Description: 3 Vessels, Nuchal Cord (times one) and Reduced Event Summary Status: Mother and were stable after delivery. Disposition: floor
[2023-09-09] MEDS: IBUPROFEN 600 MG TABLET PO (13:11)
[2023-09-09] MEDS: ACETAMINOPHEN 500 MG TABLET 1000 MG PO (18:31)
[2023-09-10 03:00] VITALS: BP 120/81; PULSE 80; RESP 17; TEMP 36.7; O2SAT 98
[2023-09-10] MEDS: IBUPROFEN 600 MG TABLET PO (05:42)
--- NOTE | 2023-09-10 07:37 | PM.OBDSVD1 ---
DS: Providers Provider Date Seen: 09/10/23 Date of admission: 09/09/23 00:41 Primary care physician: Not a Local Provider Admitting Clinician: Luciana Tolliver CNM Attending Physician on discharge: Luciana Tolliver CNM Date of Discharge: 09/10/23 DS: Diagnosis Discharge Diagnosis (1) Lactating mother: Status: Acute (2) care following vaginal delivery: Status: Acute Exam Narrative: Exam Narrative: GENERAL APPEARANCE:? normal affect, alert, no distress? MOOD:? appropriate? CHEST:? clear to auscultation and percussion? HEART:? regular rate and rhythm? ABDOMEN:? soft, non-tender the uterine fundus is 2 cm Below Umbilicus, Midline and is appropriate for the stage of recovery. ? PERINEUM:? mild edema of the perineum, there is a 2nd degree that is healing well.? EXTREMITIES:? normal and no edema? Patient has no complaints? No active bleeding?? Doing well? She is requesting discharge home.? Const: Vital Signs, click to edit/add: Vital Signs - 24 hr 09/09/23 12:00 09/09/23 16:00 09/09/23 20:07 Temperature 97.6 F 97.9 F 98.2 F Pulse Rate [Pulse Oximeter] 80 88 85 Respiratory Rate 16 16 16 Blood Pressure [Le ft Arm] 114/72 112/80 121/82 Pulse Oximetry 96 96 98 Oxygen Delivery Me thod Room Air Room Air Room Air 09/10/23 03:00 Temperature 98.0 F Pulse Rate [Pulse Oximeter] 80 Respiratory Rate 17 Blood Pressure [Le ft Arm] 120/81 Pulse Oximetry 98 Oxygen Delivery Me thod Room Air Documenting provider has reviewed patient's vital signs: yes OB - DS: Summary Hospital Course Hospital Course: The patient is a 28 year old G 3 P 2 at 40.2 weeks gestation that was admitted to the Center on 09/09/23 for active labor at term. She had an uncomplicated vaginal delivery. She delivered a viable male . She is breast feeding. Baby has been cluster feeding overnight but she feels that it is going well. the patient has done well. She is passing gas but has not had a bowel movement. Her pain is well controlled and she is ambulating without difficulty. She is unsure what she is planning for control but she is considering something permanent. Options were reviewed perviously. Her and her partner are still discussing their options. She does have a cyst by her urethra. She states that she thinks she first noticed it after the of her first child. She denies pain or irritation with it and doesn't feel that it has changed in shape, size, or in how it feels since it was first discovered. She declines to have it looked at today. Peripartum Data delivery method: Vaginal Laceration description: Perineal - 2nd Degree Episiotomy description: None complications: none Gender: Male Infant Discharge Plan: Home Status at Discharge Functional status at discharge: independent ambulation Overall status at discharge: patient is progressing back to baseline Time Spent with Patient Time attestation: Total time spent providing and/or coordinating discharge services: Discharge Plan Discharge Disposition: Home, Self-Care Date of Admission: 09/09/23 00:41 Attending Provider on Discharge: Meli Wolff Primary Care Provider: Provider,Not a Local Condition: Stable Anticipated Discharge Date/Time: 09/10/23 10:00 Discharge Medications: New docusate sodium 100 mg Capsule 100 mg PO DAILY Qty: 60 0RF Rx Instructions: Take 1-2 tablets daily as needed for constipation. ibuprofen 600 mg Tablet 600 mg PO Q6H PRNQty: 30 0RF Continued prenat.vits,moriah,[id number] Tablet 1 tab PO QDAY calcium carbonate [Calcium 500] 500 mg calcium (1,250 mg) tablet,chewable 500 mg PO TID prochlorperazine maleate [Compazine] 10 mg tablet 10 mg PO Q8H PRNQty: 10 0RF Discontinued Ferretts 325 mg (106 mg iron) tablet 325 mg PO Q OTHER DAY Discharge Orders: Discharge Order (Routine); Ordered 09/10/23 Ordered By: Meli Wolff Patient Education: OB Vaginal/Breast Feeding Additional Instructions: Discharge instructions were reviewed with the patient including signs and symptoms of infection and home going medications.? Lifting Restrictions: 20 pounds for 6? weeks? ?? Do not drive while taking narcotic pain meds.? Off Work or School for 6 weeks.? ?? Symptoms to report to doctor:? -Bleeding that saturates more than one pad per hour? -Passing clots larger than the size of a golf ball? -Pain not relieved by prescribed medication? -Fever above 100.4 degrees Fahrenheit? -A foul vaginal odor? -Difficulty in emotions, mood and functions? -Thoughts of hurting yourself and/or ? -Painful, reddened area in your breast? -Any drainage, redness or tenderness in your IV/epidural site? -Severe headache that doesn't improve after taking medications? -Changes in vision, including temporary loss of vision, blurred vision, and/or light sensitivity? -Upper abdominal pain (usually under ribs on the right side)? -Decrease in urination or painful, frequent urinating? -Chest pain? -Shortness of breath? -Tenderness or pain with redness and/swelling in the calf(s) of your leg? ?? Follow Up in clinic in 2 and 6 weeks.? ?? consultation services are available to all mothers and babies for the first year after delivery.? To make an appointment, please call [phone].? Activity Level: Activity as Tolerated Discharge Diet: Regular Follow Up Appointments: [facility] [Provider Group] Provider,Not a Local [Primary Care Provider] - Forms: MyHealth Info Instructions
[2023-09-10 08:12] VITALS: BP 109/73; PULSE 79; RESP 17; TEMP 36.9; O2SAT 97
== END 2023-09-10 12:10 | disposition home or self-care (01) | DRG 560 ==
LOC: OB OUT 09-12 09:19
PROVIDERS: Admitting Provider Advanced Practice Midwife; Visit Provider Advanced Practice Midwife
DX: O99.344 Other mental disorders complicating childbirth (principal); F98.8 Other specified behavioral and emotional disorders with onset usually occurring in childhood and adolescence; F41.9 Anxiety disorder, unspecified; F32.A Depression, unspecified; O70.1 Second degree perineal laceration during delivery; G43.509 Persistent migraine aura without cerebral infarction, not intractable, without status migrainosus; O34.83 Maternal care for other abnormalities of pelvic organs, third trimester; N36.8 Other specified disorders of urethra; Z3A.39 39 weeks gestation of pregnancy; Z37.0 Single live birth
CPT/HCPCS: 01967; 36415; 82565; 82570; 84156; 84450; 84460; 84520; 85025; 85027; 86850; 86900; 86901; 99213; A9270; J2001; J2371; J2795; J3010; J7120; S0020

== ENCOUNTER 2023-10-24 08:40 | Outpatient (CLI) | payer BC, SELFPAY | END 2023-10-24 08:41 | disposition home or self-care (01) | LOC: NFLDREF 08:54 | PROVIDERS: Visit Provider Obstetrics & Gynecology | DX: N36.8 Other specified disorders of urethra (principal) | CPT/HCPCS: 87070; 87186 ==

== ENCOUNTER 2024-02-26 09:25 | Outpatient (CLI) | payer OTHER, SELFPAY ==
--- OUTSIDE RECORDS SUMMARY | 2024-02-26 09:30 | XMS_ITS | Clinical Summary ---
Author Name Unknown Organization [employer] [facility] [employer] [facility] Address [place], [place] [address] Care Team Providers Care Powerhouse Mechanic Supervisor Name Role Phone Mary Alice Parker [facility] Primary Care Provider [phone] Allergies Active Allergy Reactions Criticality Noted Date Comments Latex Rash 09/26/2021 Nickel Rash 09/18/2014 Medications No known medications Active Problems Problem Noted Date Diagnosed Date Annual physical exam 02/14/2022 Pap smear for cervical cancer screening 01/18/20 22 Overview: 01/2022 NIL Plan: Pap/HPV due 01/2025 Susceptible to varicella (non-immune), currently 05/25/2021 Family history of thyroid disorder 10/28/2015 ADD (attention deficit disorder) 09/18/2014 Adjustment disorder with mixed anxiety and depre ssed mood 03/04/2013 Resolved Problems Problem Noted Date Diagnosed Date Resolved Date exam 02/14/2022 02/14/2022 Forceps delivery with baby delivered 12/18/2021 02/16/2022 Liveborn 12/18/2021 02/16/2022 Obstetric vaginal laceration , delivered, current hospitalization 12/18/2021 02/16/2022 Category II heart rate tracing during labor and delivery 12/18/2021 02/16/2022 Gestational hypertension, third trimester 12/16/2021 02/16/2022 Decreased movement 10/27/2021 Cramping affecting , antepartum 09/27/2021 12/16/2021 Supervision of normal 07/01/2021 02/16/2022 Overview: Candelario CHENG - at [place] 25 y.o. sex, name: GIRL FOB: Micah Other children: first for both COURSE: - Final Estimated Date of Delivery: 12/19/21 by LMP c/w 7 wk US - care initiated at 7 wks - pre-gravid BMI 28.74, goal TWG 7 kg (15 lb)-11.5 kg (25 lb) at term - early GDM screen: NO - aspirin 81 mg for pre-E risk: NO - maternal carrier screens: declined - genetic screens: First Tri low-risk - immunizations: flu [], tdap [10/24/21], other [non-immune Rubella & Varicella] - accepting of blood products: YES - hx any HSV: NO DOC FSH PHQ9 TOTAL SCORE 01/30/2017 06/05/2017 09/01/2019 05/23/2021 09/20/2021 PHQ-9 TOTAL SCORE 5 5 19 2 2 Depression Severity Level mild mild moderately severe none none Imagin. 6/14 - 7w2d by CRL exactly matches LMP dating, FHR 133 bpm 2. 7/19 - 12w0d by CRL c/w LMP, NT wnl, First Tri screen low-risk 3. 9/20 - 21w0d, anatomy WNL, EFW 42%, placenta posterior no previa Labs: - O Rh Positive - GC/CT: declined, low-risk - HB.6 > 11.2 - PLT: 267 - HCV: neg - GCT: 87 - GBS: negative Pap due, declined prenatally - plan for 6 wk PP visit COMPLICATIONS: High Risk? NO Non-immune status - rubella & varicella titers non-immune - vaccines have been recommended after delivery, [facility] is accepting PREFERENCES: - planning epidural - wants to try hydrotherapy first and go as long as possible until epidural - taking class, no childbirth edu - pump at hospital _ All baby meds ok Dysfunctional uterine bleeding 03/13/2016 02/16/2022 Contraception 07/14/2014 09/20/2021 Encounter for other specifie d screening 02/16/2022 Arrest of descent, delivered , current hospitalization 02/16/2022 Immunizations Name Administration Dates Next Due DTaP 01/07/1997,03/07/1996,01/07/1996 ,1995 Hepatitis A (Peds) 06/28/2010 Hepatitis B (Peds) 01/07/1997 Hib Conjugate, Unspecified 01/07/1997,03/07/1996 ,01/07/1996,1995 Human Papilloma Virus Vaccine 05/01/2011, 011,11/29/2010 Inactivated Polio Vaccine 03/07/1996,01/07/1996, 1995 Influenza, IIV3 (Age >=3 years) 11/21/2014,09/12,09/15/2010 Influenza, IIV4 09/01/2019,07/27/2016,08/13/2015 Influenza,CCIIV4 PRESERV FREE 11/14/2018 MMR 06/11/2008,01/07/1997 Meningococcal Vaccine (Menactra) 06/28/2010 Tdap 10/24/2021 Tuberculin (PPD) 01/15/2013 Varicella Vaccine 06/28/2010,01/07/1997 Family History Medical History Relation Name Comments Hyperlipidemia Father Hypertension Father Psychiatric illness Maternal Aunt Thyroid Disease Maternal Aunt Alcohol/Drug Maternal Grandfather Diabetes Maternal Grandmother Other Maternal Grandmother muscula r disease similar to MS Psychiatric illness Maternal Grandmother Alcohol/Drug Maternal Uncle Alcohol/Drug Other Psychiatric illness Other Thyroid Disease Paternal Aunt defects No Family History Clotting disorder No Family History Congenital heart disease No Family History Relation Name Status Comments Father Maternal Aunt Maternal Grandfather Maternal Grandmother Maternal Uncle Other Paternal Aunt Social History Tobacco Use Types Packs/Day Years Used Date Smoking Tobacco: Never Smokeless Tobacco: Never Tobacco Cessation:Counseling Given: Yes Alcohol Use Standard Drinks/Week Comments Not Currently 0 (1 standard drink = 0.6 oz pur e alcohol) 3 drinks twice a month PHQ-2 Answer Date Recorded PHQ-2 TOTAL SCORE 0 02/16/2022 Social Connections Answer Date Recorded Frequency of Communication with Friends and Fami ly Not on file 11/14/2021 Financial Resource Strain Answer Date R ecorded Difficulty of Paying Living Expenses Not on file 11/14/2021 Difficulty of Paying Living Expenses Not on file 11/14/2021 Sex and Gender Information Value Date Recorded Sex Assigned at Not on file Gender Identity Not on file Sexual Orientation Not on file Obstetrics History Para Term AB IAB SAB Ectopic Multiple Livin g Live Births 1 1 1 0 0 0 0 0 0 1 1 Date Outcome GA Total Labor Labor/2nd/3rd Weight Sex Delivery Anes PTL Tere A1 A5 Name Cl in 12/18 Term 39w 6d 15h 05m 12h 30m/2h 31m/0h 04m 3.24 kg (7 lb 2.3 oz) F Vag-Force ps Epidu ral,I V Meds N Sarita ng 5 8 Olivi a Frict on, Lyubov tracey, CNM Complications:Category II: I ndeterminate Delivery Location:Hospital ( [facility] 2000 L&D TRIAGE) Last Filed Vital Signs Vital Sign Reading Time Taken Comments Blood Pressure 108/70 02/16/2022 2:08 PM CDT Pulse 68 02/16/2022 2:08 PM CDT Temperature 36.6 ??C (97.8 ??F) 12/19/2021 7:20 AM CS T Respiratory Rate 18 12/19/2021 7:20 AM LEAD SOFTWARE ARCHITECT Oxygen Saturation 96% 12/19/2021 7:20 AM LEAD SOFTWARE ARCHITECT Inhaled Oxygen Concentration - - Weight 84.4 kg (186 lb) 02/16/2022 2:08 PM CDT Height 167.6 cm (5' 6) 02/16/2022 2:08 PM CDT Body Mass Index 30.02 02/16/2022 2:08 PM CDT Plan of Treatment Health Maintenance Due Date Last Done Comments BMI (ht and wt on same day) for age 18+ 02/16/2023 02/16/2022, 04/15/2021, 09/01/2019, Additional history exists Depression screening for age 12+ 02/16/2023 02/16/2022, 09/20/2021, 05/23/2021, Additional history exists COVID-19 vaccine series ( season) 2023 Influenza for age 9-49 07/20/2024 9, 11/14/2018, 07/27/2016, Additional history exists Pap test for age 21-65 02/16/2025 02/16/2022, 2015 Tetanus booster 10/24/2031 10/24/2021 HIV for age 15-65 Completed 05/23/2021 Hepatitis C screening for age 18-79 Completed 05/23/2021 Tdap Completed 10/24/2021 Pneumococcal series for age 6-64 Aged Out No longer eligible based on patient's age to complete this topic Procedures Procedure Name Priority Date/Time Associated Diagnosis Comments DIAL MARKER THIN PREP PAP SCREEN IMAGED Routine 02/16/2022 2:30 PM CDT Screening for cervical cancer ANTI HIV 1/2 Routine 05/23/2021 4:35 PM CDT Supervision of normal first , antepartum ANTI HCV Routine 05/23/2021 4:35 PM CDT Supervision of normal first , antepartum from Last 3 Months or Most Recently Relevant to Health Maintenance Results * DIAL MARKER THIN PREP PAP SCREEN IMAGED (02/16/2022 2:30 PM CDT) Case Report Gynecologic Cytology Report ? Case: [id number] ? Authorizing Provider: ??Kanika Rocha CNM ?Collected: ? 02/16/2022 1430 ? Ordering Location: ? [facility] Received: ?02/16/2022 1710 ? Clinic ? First Screen: ?Morris, Cici ? Specimen: ?DIAL MARKER ThinPrep Vial Screening, Cervical ? 02/28/2022 9:57 AM CDT [facility] INTERPRETATION/ RESULT NEGATIVE FOR INTRAEPITHELIAL LESION OR MALIGNANCY (NIL) (none) 02/28/2022 9:57 AM CDT [facility] ENTRAL LABORATORY IMEN ADEQUACY Satisfactory for evaluation Endocervical component present 02/28/2022 9:57 AM CDT [facility] ENTRAL LAB[facility]ATORY HPV REQUEST HPV if ASCUS 02/28/2022 9:57 AM CDT [facility] EN[facility] LAB[facility] Date of LMP 2016 02/28/2022 9:57 AM CDT [facility] ENTRAL LABORATORY Last Pap Date 10/18/16 02/28/2022 9:57 AM CDT [facility] EN[facility] Last Pap Result NIL 9:57 AM CDT [facility] Abnormal Pap or [place] Bx in last 5 years No 02/28/2022 9:57 AM CDT [facility] EN[facility] Menstrual Status 02/28/2022 9:57 AM CDT [facility] [place] Bx Done Today No 02/28/2022 9:57 AM CDT [facility] ENTRAL LAB[facility]ORY Additional Information None given 02/28/2022 9:57 AM CDT [facility] ENTRAL LABORATORY Comment: Cytology is screened at [facility] [employer] [facility], Central Laboratory - [address], [place] [address] and [facility] Laboratory - [address], [place] [address] and [facility] - [address] [place] [address] Interpreted at [facility] Laboratory - [address], [place] [address] Automated Review Successful 02/28/2022 9:57 AM CDT [facility] ENTRAL LABORATORY Comment:Specimen processed s uccessfully by automated stummel selector device, ThinPrep Imaging System, [email or web address] Note The pap test is a screening technique, not a diagnostic procedure. It is used primarily to screen for squamous cancers and precursor lesions. Published studies have shown that it is subject to both false negative and false positive results. The pap test should not be used as the sole means to diagnose or exclude pre-malignant and malignant lesions. 02/28/2022 9:57 AM CDT [facility] ENTRAL LABORATORY Other (Cervical) Non-Blood / Unknown 02/16/2022 2:30 PM CDT 02/16/2022 5:10 PM CDT Kanika Rocha CNM PATHOLOGY/CYTOLOGY [facility] [address] [place] [address], [place] * ANTI HCV (05/23/2021 4:35 PM CDT) Pathologist [facility] HEPATITIS C ANTIBODY Non-React vicente Non-React vicente 05/23/2021 9:06 PM CDT [facility] TRAL LABORATORY Comment:Antibodies to HCV no t detected; does not exclude the possibility of exposure to HCV. Blood BLOOD SPECIMEN / Unknown Venipuncture / Unknown 05/23/2021 4:35 PM CDT 05/23/2021 4:38 PM CDT Jarad Smith CNM SEND OUTS [facility] [address] [place] [address], [place] * ANTI HIV 1/2 (05/23/2021 4:35 PM CDT) HIV-1/HIV-2 ANTIBODY Non-Reacti ve Non-Reacti ve 05/23/2021 9:00 PM CDT [facility] TRAL LABORATORY Comment:HIV-1 p24 and HIV-1/ HIV-2 Ab not detected. Blood BLOOD SPECIMEN / Unknown Venipuncture / Unknown 05/23/2021 4:35 PM CDT 05/23/2021 4:38 PM CDT Jarad Smith CNM SEND OUTS [facility]-CENTRAL LABORATORY [address] [place] [address], from Last 3 Months or Most Recently Relevant to Health Maintenance Advance Directives * Full Code (Latest Code Status on File) Date Activated Date Inactivated Comments 12/16/2021 5:34 PM 12/19/2021 3:34 PM Question Answer Comments Code Status Discussion: Reviewed Preferences Care Teams Powerhouse Mechanic Supervisor Relationship Specialty Start Date End Date Mary Alice Parker CNM [id number] [place] [address] PCP - General Family Practice 12/02/10
== END 2024-02-26 09:26 | disposition home or self-care (01) ==
PROVIDERS: Visit Provider Obstetrics & Gynecology
DX: Z13.220 Encounter for screening for lipoid disorders (principal); Z13.1 Encounter for screening for diabetes mellitus
CPT/HCPCS: 80061; 82947

== ENCOUNTER 2024-03-04 08:38 | Outpatient (CLI) | payer OTHER, SELFPAY ==
--- OUTSIDE RECORDS SUMMARY | 2024-03-04 08:41 | XMS_ITS | Clinical Summary ---
Author Name Unknown Organization [employer] [facility] [employer] [facility] Address [place], [place] [address] Care Team Providers Care Pharmacy Delivery Driver Name Role Phone Mary Alice Parker [facility] Primary Care Provider [phone] Allergies Active Allergy Reactions Criticality Noted Date [...] delivery with baby delivered 12/18/2021 02/16/2022 Liveborn infant 12/18/2021 02/16/2022 Obstetric vaginal laceration , delivered, current hospitalization 12/18/2021 02/16/2022 Category II heart rate tracing during labor and delivery 12/18/2021 02/16/2022 Gestational hypertension, third trimester 12/16/2021 02/16/2022 Decreased movement 10/27/2021 Cramping affecting , antepartum 09/27/2021 12/16/2021 Supervision of normal 07/01/2021 02/16/2022 Overview: Candelario CHENG - at [place] 25 y.o. sex, name: GIRL FOB: Micah [...] Complications:Category II: I ndeterminate Delivery Location:Hospital ( [facility] 2000 L&D TRIAGE) Last Filed Vital Signs Vital Sign Reading Time Taken Comments Blood Pressure 108/70 02/16/2022 2:08 PM CDT Pulse 68 02/16/2022 2:08 PM CDT Temperature 36.6 ??C (97.8 ??F) 12/19/2021 7:20 AM CS T Respiratory Rate 18 12/19/2021 7:20 AM LUNG GUN OPERATOR Oxygen Saturation 96% 12/19/2021 7:20 AM LUNG GUN OPERATOR Inhaled Oxygen Concentration - - Weight 84.4 [...] Procedure Name Priority Date/Time Associated Diagnosis Comments PSYCHOLOGIST ENGINEERING THIN PREP PAP SCREEN IMAGED Routine 02/16/2022 2:30 PM CDT Screening for cervical cancer ANTI HIV 1/2 Routine 05/23/2021 4:35 PM CDT Supervision of normal first , antepartum ANTI HCV Routine 05/23/2021 4:35 PM CDT Supervision of normal first , antepartum from Last 3 Months or Most Recently Relevant to Health Maintenance Results * PSYCHOLOGIST ENGINEERING THIN PREP PAP SCREEN IMAGED (02/16/2022 2:30 PM CDT) Case Report Gynecologic Cytology Report ? Case: [id number] ? Authorizing Provider: ??Kanika Rocha CNM ?Collected: ? 02/16/2022 1430 ? Ordering Location: ? [facility] Received: ?02/16/2022 1710 ? Clinic ? First Screen: ?Morris, Cici ? Specimen: ?PSYCHOLOGIST ENGINEERING ThinPrep Vial Screening, Cervical ? 02/28/2022 9:57 AM CDT [facility] INTERPRETATION/ RESULT NEGATIVE FOR INTRAEPITHELIAL LESION OR MALIGNANCY (NIL) (none) 02/28/2022 9:57 AM CDT [facility] ENTRAL LABORATORY IMEN ADEQUACY Satisfactory for evaluation Endocervical component present 02/28/2022 9:57 AM CDT [facility] ENTRAL LABORATORY HPV REQUEST HPV if ASCUS 02/28/2022 9:57 AM CDT [facility] ENTRAL LABORATORY Date of LMP 2016 02/28/2022 9:57 AM CDT [facility] ENTRAL LABORATORY Last Pap Date 10/18/16 02/28/2022 9:57 AM CDT [facility] ENTR[facility] LAB[facility]ORY Last Pap Result NIL 9:57 AM CDT [facility] Abnormal Pap or [place] Bx in last 5 years No 02/28/2022 9:57 AM CDT [facility] EN[facility] LAB[facility]ORY Menstrual Status 02/28/2022 9:57 AM CDT [facility] [place] Bx Done Today No 02/28/2022 9:57 AM CDT [facility] ENTRAL LABORATORY Additional Information None given 02/28/2022 9:57 AM CDT [facility] ENTRAL LABORATORY Comment: Cytology is screened at [facility] [facility], Central Laboratory - [address], [place] [address] and [facility] Laboratory - [address], [place] [address] and [facility] - [address] [place] [address] Interpreted at [facility] Laboratory - [address], [place] [address] Automated Review Successful 02/28/2022 9:57 AM CDT [facility] ENTRAL LABORATORY Comment:Specimen processed s uccessfully by automated oil distributor device, ThinPrep Imaging System, [employer] Note The pap test is a [...] and malignant lesions. 02/28/2022 9:57 AM CDT [facility] ENTRAL LABORATORY Other (Cervical) Non-Blood / Unknown 02/16/2022 2:30 PM CDT 02/16/2022 5:10 PM CDT Kanika Rocha CNM PATHOLOGY/CYTOLOGY [facility] [address] [place] [address], [place] * ANTI HCV (05/23/2021 4:35 PM CDT) Pathologist [facility] HEPATITIS C ANTIBODY Non-React vicente Non-React vicente 05/23/2021 9:06 PM CDT [facility] TRAL LABORATORY Comment:Antibodies to HCV no t detected; does not exclude the possibility of exposure to HCV. Blood BLOOD SPECIMEN / Unknown Venipuncture / Unknown 05/23/2021 4:35 PM CDT 05/23/2021 4:38 PM CDT Jarad Smith CNM SEND OUTS [facility] [address] [place] [address], [place] * ANTI HIV 1/2 (05/23/2021 4:35 PM CDT) HIV-1/HIV-2 ANTIBODY Non-Reacti ve Non-Reacti ve 05/23/2021 9:00 PM CDT [facility] TRAL LABORATORY Comment:HIV-1 p24 and HIV-1/ HIV-2 Ab not detected. Blood BLOOD SPECIMEN / Unknown Venipuncture / Unknown 05/23/2021 4:35 PM CDT 05/23/2021 4:38 PM CDT Jarad Smith CNM SEND OUTS [facility]-CENTRAL LABORATORY [address] [place] [address], from Last 3 Months or Most Recently Relevant to Health Maintenance Advance Directives * Full Code (Latest Code Status on File) Date Activated Date Inactivated Comments 12/16/2021 5:34 PM 12/19/2021 3:34 PM Question Answer Comments Code Status Discussion: Reviewed Preferences Care Teams Pharmacy Delivery Driver Relationship Specialty Start Date End Date Mary Alice Parker CNM [address] [place] [address] PCP - General Family Practice 12/02/10
== END 2024-03-04 08:39 | disposition home or self-care (01) ==
PROVIDERS: Visit Provider Internal Medicine
DX: K62.5 Hemorrhage of anus and rectum (principal)
CPT/HCPCS: 85610; 85730

== ENCOUNTER 2024-05-30 15:52 | Outpatient (CLI) | payer OTHER, SELFPAY ==
--- OUTSIDE RECORDS SUMMARY | 2024-05-30 15:55 | XMS_ITS | Clinical Summary ---
Author Organization [employer] [facility] [employer] [facility] Address [place], [place] [address] Care Team Providers Care Hydrometeorological Technician Name Role Phone Mary Alice Parker [facility] Primary Care Provider [phone] Allergies Active Allergy Reactions Criticality Noted Date Comments Latex Rash 09/26/2021 Nickel Rash 09/18/2014 Medications No known medications Active Problems Problem Noted Date Diagnosed Date Annual physical exam 02/14/2022 Pap smear for cervical cancer screening 01/18/20 Overview: 01/2022 NIL Plan: Pap/HPV due 01/2025 [...] Supervision of normal 07/01/2021 02/16/2022 Overview: Candelario HERNANDEZM - at [place] 25 y.o. sex, name: GIRL FOB: Micah [...] matches LMP dating, FHR 133 bpm 2. 7/ - 12w0d by CRL c/w LMP, NT wnl, First Tri screen low-risk 3. 9/ - 21w0d, anatomy WNL, EFW 42%, placenta [...] Outcome GA Total Labor Labor/2nd/3rd Weight Sex Type Anes PTL Tere A1 A5 Name Clin 022 Term 39w 6d 15h 05m 12h 30m/2h 31m/0h 04m 3.24 kg (7 lb 2.3 oz) F Vag-F orcep s Epidu ral,I V Meds N Livin g 5 8 Denise Kerr on, Lyubov tracey, CNM Complications:Category II: I ndeterminate Delivery Location:Hospital ( [facility] 1999 L&D TRIAGE) Last Filed Vital Signs Vital Sign Reading Time Taken Comments Blood Pressure 108/70 02/16/2022 2:08 PM CDT Pulse 68 02/16/2022 2:08 PM CDT Temperature 36.6 ??C (97.8 ??F) 12/19/2021 7:20 AM CS T Respiratory Rate 18 12/19/2021 7:20 AM SASH FINISHER Oxygen Saturation 96% 12/19/2021 7:20 AM SASH FINISHER Inhaled Oxygen Concentration - - Weight 84.4 [...] Procedure Name Priority Date/Time Associated Diagnosis Comments SELENIUM PLANT OPERATOR THIN PREP PAP SCREEN IMAGED Routine 02/16/2022 2:30 PM CDT Screening for cervical cancer ANTI HIV 1/2 Routine 05/23/2021 4:35 PM CDT Supervision of normal first , antepartum ANTI HCV Routine 05/23/2021 4:35 PM CDT Supervision of normal first , antepartum from Last 3 Months or Most Recently Relevant to Health Maintenance Results * SELENIUM PLANT OPERATOR THIN PREP PAP SCREEN IMAGED (02/16/2022 2:30 PM CDT) Case Report Gynecologic Cytology Report ? Case: [id number] ? Authorizing Provider: ??Kanika Rocha CNM ?Collected: ? 02/16/2022 1430 ? Ordering Location: ? [facility] Received: ?02/16/2022 1710 ? Clinic ? First Screen: ?Morris, Cici ? Specimen: ?SELENIUM PLANT OPERATOR ThinPrep Vial Screening, Cervical ? 02/28/2022 9:57 AM CDT [facility] [employer] [facility] INTERPRETATION/ RESULT NEGATIVE FOR INTRAEPITHELIAL LESION OR MALIGNANCY (NIL) (none) 02/28/2022 9:57 AM CDT [facility] ENTRAL LABORATORY IMEN ADEQUACY Satisfactory for evaluation Endocervical component present 02/28/2022 9:57 AM CDT [facility] ENTRAL LABORATORY HPV REQUEST HPV if ASCUS 02/28/2022 9:57 AM CDT [facility] Date of LMP 2016 02/28/2022 9:57 AM CDT [facility] ENTRAL LABORATORY Last Pap Date 10/18/16 02/28/2022 9:57 AM CDT [facility] ENTRAL LABORATORY Last Pap Result NIL 9:57 AM CDT [facility] [employer] [facility] Abnormal Pap or [place] Bx in last 5 years No 02/28/2022 9:57 AM CDT [facility] EN[facility] LAB[facility]ORY Menstrual Status 02/28/2022 9:57 AM CDT [facility] [place] Bx Done Today No 02/28/2022 9:57 AM CDT [facility] ENTRAL LABORATORY Additional Information None given 02/28/2022 9:57 AM CDT [facility] ENTRAL LABORATORY Comment: Cytology is screened at [facility], Central Laboratory - [address], [place] [address] and [facility] Laboratory - [address], [place] [address] and [facility] Laboratory - [address] [place] [address] Interpreted at [facility] Laboratory - [address], [place] [address] Automated Review Successful 02/28/2022 9:57 AM CDT [facility] ENTRAL LABORATORY Comment:Specimen processed s uccessfully by automated family dentist device, ThinPrep Imaging System, [employer] Note The pap test is a [...] and malignant lesions. 02/28/2022 9:57 AM CDT [facility] ENTRKY LABORATORY Other (Cervical) Non-Blood / Unknown 02/16/2022 2:30 PM CDT 02/16/2022 5:10 PM CDT Kanika Rocha CNM PATHOLOGY/CYTOLOGY Performing Organization Address City/[facility]/ZIP Co de Phone Number [facility] [address] [place] [address], [place] * ANTI HCV (05/23/2021 4:35 PM CDT) HEPATITIS C ANTIBODY Non-React vicente Non-React vicente 05/23/2021 9:06 PM CDT [facility] TRAL LABORATORY Comment:Antibodies to HCV no t detected; does not exclude the possibility of exposure to HCV. Blood BLOOD SPECIMEN / Unknown Venipuncture / Unknown 05/23/2021 4:35 PM CDT 05/23/2021 4:38 PM CDT Jarad Smith CNM SEND OUTS [facility] [address] [place] [address], [place] * ANTI HIV 1/2 (05/23/2021 4:35 PM CDT) HIV-1/HIV-2 ANTIBODY Non-Reacti ve Non-Reacti ve 05/23/2021 9:00 PM CDT [facility] TRAL LABORATORY Comment:HIV-1 p24 and HIV-1/ HIV-2 Ab not detected. Blood BLOOD SPECIMEN / Unknown Venipuncture / Unknown 05/23/2021 4:35 PM CDT 05/23/2021 4:38 PM CDT Jarad Smith CNM SEND OUTS [facility] LAB[facility]-CENTRAL LABORATORY [address] [place] [address], from Last 3 Months or Most Recently Relevant to Health Maintenance Advance Directives * Full Code (Latest Code Status on File) Date Activated Date Inactivated Comments 12/16/2021 5:34 PM 12/19/2021 3:34 PM Question Answer Comments Code Status Discussion: Reviewed Preferences Care Teams Hydrometeorological Technician Relationship Specialty Start Date End Date Mary Alice Parker CNM [address] [place] [address] PCP - General Family Practice 12/02/10
[2024-05-30 17:38] LABS: Chlamydia DNA Amplified* NOT DETECTED (No Detected); GC DNA Amplified* NOT DETECTED (No Detected)
== END 2024-05-30 15:53 | disposition home or self-care (01) ==
LOC: NPINS 15:53
PROVIDERS: Visit Provider Obstetrics & Gynecology Reproductive Endocrinology
DX: Z11.8 Encounter for screening for other infectious and parasitic diseases (principal)
CPT/HCPCS: 87491; 87591

== ENCOUNTER 2025-01-19 09:23 | Outpatient (CLI) | payer OTHER, SELFPAY ==
[2025-01-19 16:10] LABS: Chlamydia DNA Amplified* NOT DETECTED (No Detected); GC DNA Amplified* NOT DETECTED (No Detected)
[2025-01-20 22:25] LABS: HPV Source Cervical; HPV, High Risk by TMA Not Detected
== END 2025-01-19 09:24 | disposition home or self-care (01) ==
PROVIDERS: Visit Provider Obstetrics & Gynecology
DX: Z12.4 Encounter for screening for malignant neoplasm of cervix (principal); Z11.3 Encounter for screening for infections with a predominantly sexual mode of transmission; Z11.51 Encounter for screening for human papillomavirus (HPV)
CPT/HCPCS: 87491; 87591; 87624; 87625; 88141; 88142